=== PATIENT | male | born 1930 | race Caucasian/White ===

== ENCOUNTER 2016-05-08 12:03 | Day surgery (SDC) | payer MEDICARE ==
[2016-05-08] VITALS (10 sets, daily range): BP systolic 92–217; BP diastolic 47–94; PULSE 48–65; TEMP 98.1–98.9
[~2016-05-08] VITALS: Ht 175.3 cm; Wt 79.0 kg
[~2016-05-08 12:03] MED LIST: ASPIRIN E.C. 8181 MG PO; BRILINTA90 MG PO; CALCIUM CITRATE1 TA7 PO; CALCIUM CITRATE1 TAB PO; CRESTOR20 MG PO; CRESTOR40 MG PO; ELIQUIS 5MG PO; EPITOL PO; EYE DROP; IMDUR 30MG30 MG/TAB PO; LOPRESSOR 225 MG/TAB PO; MULTAQ400 MG PO; MULTIPLE VITAMI1 CAP PO; NEURONTIN300 MG/CAP PO; PRILOTC PO; TUMS SMOOTHIES PO; TYLENOL 325MG325 MG PO; TYLENOL 500MG500 MG PO; XALATAN EYE DROPS OU; ZANTAC 150MG T150 MG PO; ZESTRIL40 MG PO; ZOCOR 80MG80 MG PO
[2016-05-08] MEDS ORDERED: CORDARONE200 MG/TAB PO (13:39)
[2016-05-08 13:48] LABS: HEMATOCRIT 37.6 % (42.0-52.0); HEMOGLOBIN 12.1 g/dl (13.5-18.0); MEAN CELL VOLUME 93 fl (80.0-100.0); MEAN CORPUSCULAR HEMOGLOBIN 30 pg (27.0-31.0); MEAN CORPUSCULAR HGB CONC 32 g/dl (33.0-37.0); MEAN PLATELET VOLUME 10.6 fl (7.4-10.4); PLATELET COUNT 244 K/mm3 (130-400); RED BLOOD COUNT 4.05 M/mm3 (4.20-5.60); REDCELL DISTRIBUTION WIDTH-CV 14.4 % (11.5-14.5); WHITE BLOOD COUNT 10.2 K/mm3 (4.8-10.8)
[2016-05-08 13:55] LABS: CALCIUM 9.5 mg/dL (8.4-10.2); CREATININE, serum 1.78 mg/dL (0.66-1.25); POTASSIUM 3.9 mmol/L (3.4-5.0)
[2016-05-08 14:11] LABS: INR 1.2 (0.8-3.0); PROTHROMBIN TIME 13.8 SECONDS (9.7-12.8)
[2016-05-09 03:51] VITALS: BP 142/77; PULSE 52; TEMP 98.2
[2016-05-09 07:56] VITALS: BP 148/74; PULSE 58; TEMP 97.6
[2016-05-09] MEDS ORDERED: CEPHALEXIN500 M1 PO (10:47)
== END 2016-05-09 12:01 | disposition home or self-care (01) ==
LOC: EUO 12:03 → COL.RAD 12:30 → EUO 12:30 → MEDICAL 17:41 → EUO 05-09 12:01
PROVIDERS: Internal Medicine Interventional Cardiology
DX: R00.1 Bradycardia, unspecified (principal); I48.91 Unspecified atrial fibrillation; I10 Essential (primary) hypertension; R06.02 Shortness of breath; I95.1 Orthostatic hypotension; Z79.01 Long term (current) use of anticoagulants; Z79.899 Other long term (current) drug therapy; Z79.82 Long term (current) use of aspirin
CPT/HCPCS: C1785; C1894; C1898; J0360; J0690; J1940; J2250; J3010; J7030

== ENCOUNTER 2020-04-20 11:15 | Day surgery (SDC) | payer MEDICARE ==
[~2020-04-20] VITALS: Ht 175.3 cm; Wt 73.2 kg
[~2020-04-20 11:15] MED LIST changes: +CEPHALEXIN500 M1 PO; +CORDARONE200 MG/TAB PO; +COUMADIN 1MG1 MG/TAB; +COUMADIN 5MG5 MG/TAB PO; +FLOMAX 0.40.4 MG/CAP PO; +JANTOVEN5 MG PO; +LASIX 20MG TABL20 MG PO; +LIORESAL 1010 MG/TAB PO; +LIPITOR 80MG80 MG PO; +NEURONTIN100 MG/CAP PO; +REQUIP 0.5MG0.5 MG PO; +REQUIP 1MG T1 MG/TAB PO; +SINEMET 25/101 UDTAB PO; +TRILEPTAL600 MG PO
[2020-04-20 12:11] VITALS: BP 130/72; PULSE 72; TEMP 97.3
[2020-04-20 12:11] LABS: INR 1.8 (0.8-3.0); PROTHROMBIN TIME 20.7 SECONDS (9.7-12.8)
[2020-04-20 12:17] LABS: POTASSIUM 4.4 mmol/L (3.4-5.0)
[2020-04-20] MEDS ORDERED: CRESTOR40 MG PO (12:40)
[2020-04-20 12:52] LABS: THYROID STIMULATING HORMONE 1.91 uIU/mL (0.465-4.680)
[2020-04-20 15:45] VITALS: BP 124/75; PULSE 61
[2020-04-20 16:00] VITALS: BP 132/72; PULSE 69
[2020-04-20 16:15] VITALS: BP 123/59; PULSE 64
[2020-04-20] MEDS ORDERED: PACERONE200 MG PO (16:21)
[2020-04-20 16:30] VITALS: BP 135/74; PULSE 68
[2020-04-20 16:45] VITALS: BP 127/76; PULSE 71
--- NOTE | 2020-04-20 17:10 | NUR ---
Pt and aware they can expect a call from SUZANNA Mcnair with Dr. Ruth to discuss new rx before he fills it, as pt and both have hesitations about it reacting with his Parkinson's meds. DC instructions reviewed with pt, he expressed understanding. He is steady on feet in room. He has tolerated PO fluids and crackers without issue. IV DC'd with catheter intact, and bleeding controlled at site. He was assisted out to 's car by wheelchair.
== END 2020-04-20 17:13 | disposition home or self-care (01) ==
LOC: COL.CAR 11:15
PROVIDERS: Internal Medicine Interventional Cardiology
DX: I48.0 Paroxysmal atrial fibrillation (principal); I25.10 Atherosclerotic heart disease of native coronary artery without angina pectoris; I11.0 Hypertensive heart disease with heart failure; I50.9 Heart failure, unspecified; M19.90 Unspecified osteoarthritis, unspecified site; G20 Parkinson's disease; E78.5 Hyperlipidemia, unspecified; Z79.82 Long term (current) use of aspirin; Z79.899 Other long term (current) drug therapy; Z95.0 Presence of cardiac pacemaker; Z79.01 Long term (current) use of anticoagulants; Z85.828 Personal history of other malignant neoplasm of skin
CPT/HCPCS: J2704; J7030

== ENCOUNTER 2020-07-21 09:02 | Day surgery (SDC) | payer MEDICARE ==
[2020-07-21] VITALS (7 sets, daily range): BP systolic 119–137; BP diastolic 73–86; PULSE 55–84; TEMP 97.9
[~2020-07-21] VITALS: Ht 175.3 cm; Wt 75.1 kg
[~2020-07-21 09:02] MED LIST changes: +PACERONE200 MG PO
[2020-07-21 10:30] LABS: HEMATOCRIT 31.8 % (42.0-52.0); HEMOGLOBIN 10.5 g/dl (13.5-18.0); MEAN CELL VOLUME 91 fl (80.0-100.0); MEAN CORPUSCULAR HEMOGLOBIN 30 pg (27.0-31.0); MEAN CORPUSCULAR HGB CONC 33 g/dl (33.0-37.0); MEAN PLATELET VOLUME 9.4 fl (7.4-10.4); PLATELET COUNT 230 K/mm3 (130-400); RED BLOOD COUNT 3.48 M/mm3 (4.20-5.60); REDCELL DISTRIBUTION WIDTH-CV 14.2 % (11.5-14.5)
[2020-07-21 10:35] LABS: INR 2.2 (0.8-3.0); PROTHROMBIN TIME 24.6 SECONDS (9.7-12.8)
[2020-07-21 10:38] LABS: PARTIAL THROMBOPLASTIN TIME 42.7 SECONDS (26.0-37.0)
[2020-07-21 10:40] LABS: CALCIUM 9.1 mg/dL (8.4-10.2); CREATININE, serum 1.61 (0.66-1.25); POTASSIUM 4.6 mmol/L (3.4-5.0)
[2020-07-21] MEDS ORDERED: MULTAQ400 MG PO (10:44)
[2020-07-21] MEDS ORDERED: NEURONTIN300 MG/CAP PO (10:45)
[2020-07-21] MEDS ORDERED: SINEMET 25/101 UDTAB PO (10:47)
[2020-07-21] MEDS ORDERED: ASPIRIN 81M81 MG/TA2 PO (10:48)
[2020-07-21] MEDS ORDERED: TYLENOL 325MG325 MG PO (10:49)
--- NOTE | 2020-07-21 13:15 | NUR ---
Disharge instructions given to pt.Pt verbalizes understanding.INT removed,catheter tip intact.Pt escorted out via wheelchair by this nurse.
== END 2020-07-21 13:45 | disposition home or self-care (01) ==
LOC: COL.CAR 09:02
PROVIDERS: Internal Medicine Interventional Cardiology
DX: I48.0 Paroxysmal atrial fibrillation (principal); I48.91 Unspecified atrial fibrillation; E78.5 Hyperlipidemia, unspecified; I11.0 Hypertensive heart disease with heart failure; I50.9 Heart failure, unspecified; I07.1 Rheumatic tricuspid insufficiency; M19.90 Unspecified osteoarthritis, unspecified site; G20 Parkinson's disease; Z85.828 Personal history of other malignant neoplasm of skin; Z79.82 Long term (current) use of aspirin; Z79.899 Other long term (current) drug therapy; Z79.01 Long term (current) use of anticoagulants; Z95.0 Presence of cardiac pacemaker
CPT/HCPCS: J2704; J7120